=== PATIENT | male | born 1980 | race African-American/Black ===

== ENCOUNTER 2017-03-14 10:03 | Emergency (ER) | payer OTHER ==
[2017-03-14 10:10] VITALS: BP 143/82
--- NOTE | 2017-03-14 10:26 | ER Document Report ---
HPI - HPI Patient complains to provider of: Sore throat Onset: Other - Several days Onset/Duration: Persistent Quality of pain: Burning Pain Level: 2 Context: 37-year-old male complaining of sore throat and odynophagia for several days. He had a fever last night. No abdominal pain. No nausea vomiting or diarrhea. No runny nose or cough. Rapid strep is negative in the emergency department. Associated Symptoms: None Exacerbated by: Denies Relieved by: Denies Similar symptoms previously: No Recently seen / treated by doctor: No - ROS ROS below otherwise negative: Yes Systems Reviewed and Negative: Yes All other systems reviewed and negative - DERM Skin Color: Normal Past Medical History - General Information source: Patient - Social History Smoking Status: Never Smoker Chew tobacco use (# tins/day): No Smoking Education Provided: No Frequency of alcohol use: Occasional Drug Abuse: None Lives with: Family Family History: Reviewed & Not Pertinent Patient has suicidal ideation: No Patient has homicidal ideation: No - Medical History Medical History: Negative Renal/ Medical History: Denies: Hx Peritoneal Dialysis Past Surgical History: Reports: Hx Orthopedic Surgery Vertical Provider Document - CONSTITUTIONAL Agree With Documented VS: Yes Exam Limitations: No Limitations General Appearance: No Apparent Distress - INFECTION CONTROL TRAVEL OUTSIDE OF THE [place] IN LAST 30 DAYS: No - HEENT HEENT: Normocephalic, Pharyngeal Erythema. negative: Tympanic Membrane Red, Tympanic Membrane Bulging - NECK Neck: Supple. negative: Lymphadenopathy-Left, Lymphadenopathy-Right - RESPIRATORY Respiratory: Breath Sounds Normal, No Respiratory Distress O2 Sat by Pulse Oximetry: 98 - CARDIOVASCULAR Cardiovascular: Regular Rate, Regular Rhythm - GI/ABDOMEN Gastrointestinal: Abdomen Soft, Abdomen Non-Tender, No Organomegaly - MUSCULOSKELETAL/EXTREMETIES Musculoskeletal/Extremeties: MAEW, FROM - NEURO Level of Consciousness: Awake, Alert, Appropriate - DERM Integumentary: Warm, Dry, No Rash Course - Vital Signs Vital signs: Temp Pulse Resp BP Pulse Ox 98.8 F 60 16 143/82 H 98 03/14/17 10:07 03/14/17 10:07 03/14/17 10:07 03/14/17 10:03/14/17 10:07 Discharge - Discharge Clinical Impression: Sore Throat Condition: Good Disposition: HOME, SELF-CARE Instructions: Penicillin V K ([facility]), Sore Throat ([facility]), Acetaminophen, Use of Sjxx-Dbi-Kkvnahv Ibuprofen ([facility]) Additional Instructions: Throat culture is pending Plenty of fluids Tylenol or Motrin for pain Please complete the patient satisfaction survey if you get one, and return it.. If you do not receive a survey, then you can go to the [facility] website, [email or web address] and place your comments about your very good care. Thank you very much. It was a pleasure being your medical provider today. Prescriptions: Penicillin V Potassium [Penicillin Vk 500 mg Tablet] 500 mg PO QID #40 tablet Forms: Return to Work
== END 2017-03-14 10:48 | disposition home or self-care (01) ==
LOC: ER 10:03
DX: J02.9 Acute pharyngitis, unspecified (principal); R13.10 Dysphagia, unspecified
CPT/HCPCS: 87070; 87880; 99283